=== PATIENT | male | born 1950 | race Hispanic/Latino ===

== ENCOUNTER → 2020-05-01 | Outpatient (CLI) | payer MEDICARE ==
[~2020-05-01] MED LIST: ASPI-1197 PO; ATOR-2 PO; HYDR12.54 PO; METF-444 PO; TELM80TA2 PO
== END | disposition home or self-care (01) ==
LOC: SHCH 13:06
PROVIDERS: ATTEND Internal Medicine Cardiovascular Disease
DX: R01.0 Benign and innocent cardiac murmurs (principal)
CPT/HCPCS: 93306; 93356